=== PATIENT | female | born 1985 | race African-American/Black ===

== ENCOUNTER 2016-09-01 13:19 | Emergency (ER) | payer OTHER ==
[2016-09-01 11:16] LABS: INFLUENZA A NEG (NEG); INFLUENZA B NEG (NEG)
[2016-09-01 11:30] LABS: URINE SOURCE CLEAN CATCH
[2016-09-01 11:35] LABS: URINE APPEARANCE CLOUDY; URINE BILIRUBIN NEG (NEG); URINE BLOOD 3+ (NEG); URINE COLOR YELLOW; URINE GLUCOSE NEG (NEG); URINE KETONE NEG (NEG); URINE LEUKOCYTE ESTERASE 3+ (NEG); URINE NITRATE NEG (NEG); URINE PROTEIN 1+ (NEG); URINE SPECIFIC GRAVITY 1.023 (1.003-1.035)
[2016-09-01 11:38] LABS: CULTURE INDICATED? YES; U HYALINE CASTS AUWI 0-2 /[LPF]; URBCS1 AUWI 50-100 /[HPF] (0-2); URINE BACTERIA AUWI 4+ (NEGATIVE); URINE SQUAMOUS EPITHELIAL CELL OCC /[HPF]; UWBCS1 AUWI INNUM (0-5)
[~2016-09-01 13:19] MED LIST: PRENATAL MULITV1 TAB
[2016-09-04 12:14] LABS: CHLAMYDIA TRACH Not Detected (Not Detected); N GONOR Not Detected (Not Detected)
== END 2016-09-01 13:24 | disposition home or self-care (01) ==
LOC: CED 13:19
PROVIDERS: Emergency Medicine; Nurse Practitioner Family
DX: N76.0 Acute vaginitis (principal); N39.0 Urinary tract infection, site not specified; Z91.040 Latex allergy status
CPT/HCPCS: 81003; 84703; 87086; 87088; 87186; 87491; 87591; 87651; 87804; 87808; 87880; 87905; 96372; 99284; J0696